=== PATIENT | female | born 1950 | race Caucasian/White ===

== ENCOUNTER → 2016-10-23 16:54 | Outpatient (CLI) | payer MEDICARE, BC ==
[2015-08-21 08:12] VITALS: BMI 28.5
[~2016-10-23 16:54] MED LIST: ALBUTEROL2.5 MG/3 M INH; ARMOUR THYROID60 M1 PO; BAYER CHEWABLE81 MG PO; CO Q-1030 MG PO; CRESTOR20 MG PO; EFFIENT10 MG PO; ESTRADERM 0.00.05 MG TD; FORTAMET500 MG/BOT PO; PLAVIX75 MG PO; PRILOSEC20 MG PO; PROMETRIUM100 MG PO; REGLAN10 MG PO; VITAMIN D2000 UNIT PO; VITAMIN D5000 UNIT PO; ZESTRIL20 MG PO
== END | disposition home or self-care (01) ==
LOC: D.MAMMO 11:00
DX: Z12.31 Encounter for screening mammogram for malignant neoplasm of breast (principal)

== ENCOUNTER → 2016-11-25 08:09 | Outpatient (CLI) | payer MEDICARE, BC ==
[2015-08-21 08:12] VITALS: BMI 28.5
== END ==
LOC: D.MAMMO 08:09
DX: R92.8 Other abnormal and inconclusive findings on diagnostic imaging of breast (principal)

== ENCOUNTER → 2016-12-10 07:23 | Outpatient (CLI) | payer MEDICARE, BC ==
[2015-08-21 08:12] VITALS: BMI 28.5
== END | disposition home or self-care (01) ==
LOC: D.US 07:23
DX: R92.8 Other abnormal and inconclusive findings on diagnostic imaging of breast (principal)

== ENCOUNTER 2017-01-02 05:53 | Day surgery (SDC) | payer MEDICARE, BC ==
[2016-12-30 12:52] LABS: BASOPHILS 1.1 % (0-2); EOSINOPHILS 2.5 % (0-7); HEMATOCRIT 50.4 % (36.0-48.0); HEMOGLOBIN 17.1 g/dL (12-16); IMMATURE GRANULOCYTES 0.2 % (0-5); LYMPHOCYTES 33.7 % (15-50); MCH 31.7 pg (26.0-34.0); MCHC 33.9 g/dL (31.0-37.0); MCV 93.5 fL (80.0-100.0); MEAN PLATELET VOLUME 9.2 fL (7.4-10.4); MONOCYTES 9.3 % (2-11); NEUTROPHILS 53.2 % (40-80); PLATELET COUNT 218 10x3/uL (130-400); RBC 5.39 10x6/uL (4.00-5.40); RDW 12.8 % (11.5-14.5); WBC 8.4 10x3/uL (4.8-10.8)
[2016-12-30 13:01] LABS: ANION GAP 11.8 mmol/L (8-16); CALCIUM 9.7 mg/dL (8.5-10.1); CARBON DIOXIDE 28.3 mmol/L (21.0-32.0); CREATININE - SERUM 1.1 mg/dL (0.6-1.3); INR 0.98 (0.85-1.17); POTASSIUM - SERUM 4.1 mmol/L (3.5-5.1); PROTIME 12.9 SECONDS (11.6-15.0)
[2016-12-30 13:02] LABS: APTT 30.7 SECONDS (22.8-39.4)
[~2017-01-02] VITALS: Ht 157.5 cm; Wt 69.4 kg
[~2017-01-02 05:53] MED LIST changes: +OMEPRAZOLE20 M1 PO; +PROAIR HFA8.5 GM INH; +RANEXA500 MG PO
[2017-01-02 07:05] VITALS: BP 122/79; Ht 157.5 cm; Wt 69.4 kg
[2017-01-02] MEDS ORDERED: DILAUDID2 MG PO (13:17)
--- NOTE | 2017-01-02 15:25 | NUR ---
IV REMOVED INTACT. DISCHARGE INSTRUCTIONS AND RX GIVEN, VOICED UNDERSTANDING. DISCHARGED HOME VIA WC.
== END 2017-01-02 15:25 | disposition home or self-care (01) ==
LOC: D.OPS 05:53
PROVIDERS: Anesthesiology; Surgery
DX: C50.912 Malignant neoplasm of unspecified site of left female breast (principal); F17.200 Nicotine dependence, unspecified, uncomplicated; I25.10 Atherosclerotic heart disease of native coronary artery without angina pectoris; I10 Essential (primary) hypertension; K21.9 Gastro-esophageal reflux disease without esophagitis; Z95.5 Presence of coronary angioplasty implant and graft; Z01.812 Encounter for preprocedural laboratory examination

== ENCOUNTER → 2017-12-11 17:27 | Outpatient (CLI) | payer MEDICARE, BC ==
[2017-01-02 07:05] VITALS: BMI 28.0
[~2017-12-11 17:27] MED LIST changes: +DILAUDID2 MG PO
== END | disposition home or self-care (01) ==
LOC: D.MAMMO 11-27 09:30
DX: Z85.3 Personal history of malignant neoplasm of breast (principal); R92.8 Other abnormal and inconclusive findings on diagnostic imaging of breast

== ENCOUNTER → 2018-02-27 11:04 | Outpatient (CLI) | payer MEDICARE, BC ==
[2017-01-02 07:05] VITALS: BMI 28.0
== END | disposition home or self-care (01) ==
LOC: D.CT 11:04
DX: J44.9 Chronic obstructive pulmonary disease, unspecified (principal)

== ENCOUNTER 2018-06-12 17:46 | Outpatient (CLI) | payer MEDICARE, BC ==
[2017-01-02 07:05] VITALS: BMI 28.0
== END 2018-06-12 17:50 | disposition home or self-care (01) ==
LOC: D.MAMMO 17:46
DX: R92.8 Other abnormal and inconclusive findings on diagnostic imaging of breast (principal)

== ENCOUNTER 2018-08-28 10:16 | Inpatient (IN) | payer MEDICARE, BC ==
[~2018-08-28] VITALS: Ht 157.5 cm; Wt 66.4 kg
--- NOTE | 2018-08-28 10:58 | NUR ---
RECEIVED PT FROM ADMISSIONS. PT IS AAO AND UP AD DREW. RR EVEN AND UNLABORED ON RA. QUICKSTART, MED REQ, AND HISTORY COMPLETED. FAMILY AT BEDSIDE. PT CURRENTLY SITTING UPRIGHT. CALL LIGHT W/I REACH. WILL CTM.
[2018-08-28] MEDS ORDERED: METAMUCIL PACKE1 PKT PO (11:07)
[2018-08-28 13:16] LABS: BASOPHILS 0.8 % (0-2); EOSINOPHILS 4.5 % (0-7); HEMOGLOBIN 14.1 g/dL (12-16); IMMATURE GRANULOCYTES 0.3 % (0-5); LYMPHOCYTES 40.1 % (15-50); MCH 30.9 pg (26.0-34.0); MCHC 34.4 g/dL (31.0-37.0); MCV 89.7 fL (80.0-100.0); MEAN PLATELET VOLUME 8.7 fL (7.4-10.4); MONOCYTES 8.2 % (2-11); NEUTROPHILS 46.1 % (40-80); PLATELET COUNT 196 10x3/uL (130-400); RBC 4.57 10x6/uL (4.00-5.40); RDW 12.5 % (11.5-14.5); WBC 7.3 10x3/uL (4.8-10.8)
[2018-08-28 13:28] LABS: ALBUMIN 3.7 g/dL (3.4-5.0); BILIRUBIN - TOTAL 0.41 mg/dL (0.2-1.3); CALCIUM 8.9 mg/dL (8.5-10.1); CARBON DIOXIDE 24.8 mmol/L (21.0-32.0); CREATININE - SERUM 1.1 mg/dL (0.6-1.3); POTASSIUM - SERUM 3.8 mmol/L (3.5-5.1); PROTEIN - SERUM 7.2 g/dL (6.4-8.2)
--- NOTE | 2018-08-28 13:53 | NUR ---
INITIATED NEW PIV IN THE RIGHT FOREARM 20GA X1 ATTEMPT. PT TOLERATED WELL. FLUSHED WITH 10CC NS TO CONFIRM PATENCY. BEGAN INFUSING AF D51/2NS @125ML/HR. UA COLLECTED AND SENT TO LAB. WILL CTM.
[2018-08-28 14:23] VITALS: BP 124/68; BMI 26.7
[2018-08-28 14:45] LABS: APPEARANCE CLEAR (CLEAR); BILIRUBIN NEGATIVE (NEGATIVE); COLOR YELLOW (YELLOW); GLUCOSE NEGATIVE (NEGATIVE); KETONE NEGATIVE (NEGATIVE); NITRITE NEGATIVE (NEGATIVE); PROTEIN NEGATIVE (NEGATIVE); UROBILINOGEN NORMAL (NORMAL)
--- NOTE | 2018-08-28 19:40 | NUR ---
PT ALERT & ORIENTED. BED IN ROOM HAS A LARGE "DIP". PT C/O SHE IS VERY UNCONFORTABLE AND IT'S CAUSING PAIN IN HER BACK. CALLED [facility]. OLD MATTRESS REPLACED WITH NEW ONE BY [facility]. PT STATES IS "MUCH BETTER".
[2018-08-28 20:17] VITALS: BP 142/69
[2018-08-28 22:33] VITALS: BP 129/69
[2018-08-29 00:42] VITALS: BP 148/71
[2018-08-29 05:10] VITALS: BP 119/66
[2018-08-29 07:14] LABS: BASOPHILS 0.8 % (0-2); IMMATURE GRANULOCYTES 0.3 % (0-5); MCH 30.4 pg (26.0-34.0); MCHC 33.3 g/dL (31.0-37.0); MCV 91.3 fL (80.0-100.0); MONOCYTES 8.7 % (2-11); NEUTROPHILS 42.2 % (40-80); PLATELET COUNT 197 10x3/uL (130-400); RBC 4.93 10x6/uL (4.00-5.40); RDW 12.6 % (11.5-14.5)
[2018-08-29 07:39] LABS: ALBUMIN 3.4 g/dL (3.4-5.0); ANION GAP 16.2 mmol/L (8-16); BILIRUBIN - TOTAL 0.37 mg/dL (0.2-1.3); CALCIUM 8.9 mg/dL (8.5-10.1); CARBON DIOXIDE 22.7 mmol/L (21.0-32.0); CREATININE - SERUM 1.1 mg/dL (0.6-1.3); POTASSIUM - SERUM 3.9 mmol/L (3.5-5.1)
--- NOTE | 2018-08-29 07:58 | NUR ---
PT AAOX4 RESP EVEN AND NONLABORED, NO SIGNS OF DISTRESS NOTED, NO NEEDS EXPRESSED AT THIS TIME WILL CONTNUE TO MONITOR, CL IN REACH
--- NOTE | 2018-08-29 12:27 | NUR ---
RESTING QUIETLY IN BED. DENIES ANY NEEDS AT THIS TIME.
--- NOTE | 2018-08-29 13:38 | NUR ---
PT AAOX4 RESP EVEN AND NONLABORED, FAMILY PRESENT IN THE ROOM, NO SIGNS OF DISTRESS NOTED, CL IN REACH
[2018-08-29 14:59] VITALS: Ht 157.5 cm; Wt 66.4 kg
[2018-08-29] MEDS ORDERED: MIRALAX17 GM PO (16:19)
--- NOTE | 2018-08-29 16:50 | NUR ---
IV DC WITH CATH INTACT, DC INSTRUCTIONS GIVEN TO PT SHE VERBALIZES UNDERSTANDING NO QUESTIONS/CONERNS EXPRESSED, FAMILY PRESENT LEFT AMBULATING VIA FAMILY MEMBER VIA PRIVATE VECHILE IN STABLE CONDITION
== END 2018-08-29 17:00 | disposition home or self-care (01) | DRG 392 ==
LOC: D.M3 10:16
PROVIDERS: ADMIT Emergency Medicine
DX: R10.9 Unspecified abdominal pain (principal); I10 Essential (primary) hypertension; E78.5 Hyperlipidemia, unspecified; I25.10 Atherosclerotic heart disease of native coronary artery without angina pectoris

== ENCOUNTER 2019-01-18 08:00 | Outpatient (CLI) | payer MEDICARE, BC ==
[2018-08-29 14:59] VITALS: BMI 26.7
[~2019-01-18 08:00] MED LIST changes: +METAMUCIL PACKE1 PKT PO; +MIRALAX17 GM PO
== END 2019-01-18 23:59 | disposition home or self-care (01) ==
LOC: D.MAMMO 08:00
PROVIDERS: ATTEND Internal Medicine Medical Oncology
DX: C50.412 Malignant neoplasm of upper-outer quadrant of left female breast (principal); N95.8 Other specified menopausal and perimenopausal disorders

== ENCOUNTER 2020-01-20 10:00 | Outpatient (CLI) | payer MEDICARE, BC ==
[2018-08-29 14:59] VITALS: BMI 26.7
== END 2020-01-20 11:00 | disposition home or self-care (01) ==
LOC: D.MAMMO 10:00
PROVIDERS: ATTEND Internal Medicine Medical Oncology
DX: C50.412 Malignant neoplasm of upper-outer quadrant of left female breast (principal)